=== PATIENT | male | born 1950 | race Caucasian/White ===

== ENCOUNTER 2019-01-31 07:49 | Day surgery (SDC) | payer MEDICARE, OTHER ==
[2019-01-31] MEDS ORDERED: LACTATED RINGERS 1,000 ML IV ONE (08:21)
[2019-01-31] MEDS ORDERED: MIDAZOLAM 2 MG/2 ML VIAL IVP ONE (08:50)
[2019-01-31] MEDS ORDERED: fentaNYL 250 MCG/5 ML VIAL IVP ONE (08:50)
[2019-01-31 09:43] VITALS: BP 131/83
== END 2019-01-31 07:50 | disposition home or self-care (01) ==
LOC: SDS 07:49
PROVIDERS: ATTEND Internal Medicine Gastroenterology
PROC: 0DBN8ZZ Excision of Sigmoid Colon, Via Natural or Artificial Opening Endoscopic (ICD-10-PCS; 2019-01-31)
PROC: 0W3P8ZZ Control Bleeding in Gastrointestinal Tract, Via Natural or Artificial Opening Endoscopic (ICD-10-PCS; 2019-01-31)
PROC: 0DBP8ZZ Excision of Rectum, Via Natural or Artificial Opening Endoscopic (ICD-10-PCS; principal; 2019-01-31 09:15)
DX: Z12.11 Encounter for screening for malignant neoplasm of colon (principal); K63.5 Polyp of colon; K62.89 Other specified diseases of anus and rectum; M06.9 Rheumatoid arthritis, unspecified; J30.2 Other seasonal allergic rhinitis; K90.41 Non-celiac gluten sensitivity; E73.9 Lactose intolerance, unspecified; I73.00 Raynaud's syndrome without gangrene; Z87.891 Personal history of nicotine dependence
CPT/HCPCS: 45380; 45382; J3010; J7120

== ENCOUNTER 2019-09-13 23:55 | Outpatient (CLI) | payer MEDICARE, OTHER | END 2019-09-13 23:56 | disposition EMS.NT | LOC: EMS 23:55 | PROVIDERS: ATTEND Surgery | DX: R10.9 Unspecified abdominal pain (principal) ==

== ENCOUNTER 2019-09-14 01:04 | Emergency (ER) | payer MEDICARE, OTHER ==
--- NOTE | 2019-09-14 01:20 | ED Physician Documentation ---
History of Present Illness - Stated complaint Stated Complaint: ABD PX/CONFUSION - Chief complaint Chief Complaint: Neuro - History obtained from History obtained from: Patient, Family (spouse) - History of Present Illness Timing: Today (this morning (09/13/19)) Pain level max: 5 Pain level now: 2 (mild abdominal cramping, intermittent) Improved by: no ameliorating factors Worsened by: no apparent exacerbating factors - Additonal information Additional information: patient says he had an exacerbation of symptoms he attributes to gluten intolerance. Patient says he had mild abdominal cramping, intermittently since yesterday morning. this evening, after dinner, he experienced "esophageal cramping", points to epigastrium as area of discomfort, with increased abdominal cramping. He says the "esophageal cramping" has resolved but the generalized abdominal cramping continued. He was lying in bed trying to fall asleep when he began to experience leg twitching bilaterally which his description suggests brief clonic jerks, non rhythmic and not coordinated. He says his arms both raised over his head and started waving around without his control. He felt he could not otherwise move and could not speak but denies being unconscious or asleep. He then "sat bolt upright" in bed, feeling very anxious, was pacing around room. then called 911. his symptoms have gradually improved and now are limited to mild abdominal cramping pain. Review of Systems Constitutional: denies: Fever, Chills, Myalgias, Sweats Cardiac: reports: Reviewed and negative Respiratory: reports: Reviewed and negative GI: reports: Abdominal Pain. denies: Abdominal Swelling, Nausea, Vomiting, Constipation, Diarrhea : denies: Dysuria, Frequency Neurologic: reports: Difficulty speaking. denies: Generalized weakness, Focal weakness, Numbness, Confused, Headache PD PAST MEDICAL HISTORY - Past Medical History Cardiovascular: None Respiratory: None Endocrine/Autoimmune: None GI: Other : Benign prostate hypertrophy HEENT: None Psych: None Musculoskeletal: Rheumatoid arthritis Derm: None - Past Surgical History General: Colonoscopy, EGD Ortho: Other HEENT: Tonsil/Adenoidectomy - Present Medications Home Medications: Ambulatory Orders Medication Instructions Recorded Confirmed Folic Acid 1,000 mg PO DAILY 01/30/19 09/14/19 metHOTREXate sodium [Trexall] 17.5 mg PO OAW 01/30/19 09/14/19 - Allergies Allergies/Adverse Reactions: Allergies Allergy/AdvReac Type Severity Reaction Status Date / Time gluten Allergy Hallucinati Verified 09/14/19 01:22 ons PD ED PE NORMAL - Vitals Vital signs reviewed: Yes - General General: Alert and oriented X 3, No acute distress, Well developed/nourished - HEENT HEENT: PERRL, EOMI, Moist mucous membranes - Neck Neck: Supple, no meningeal sign, Other (no crepitus) - Cardiac Cardiac: RRR, No murmur - Respiratory Respiratory: No respiratory distress, Clear bilaterally - Abdomen Abdomen: Normal bowel sounds, Soft, Non tender, Non distended - Derm Derm: Normal color, Warm and dry - Neuro Neuro: Alert and oriented X 3, auditor/quality 2-12 intact, No motor deficit, No sensory deficit, Normal speech Eye Opening: Spontaneous Motor: Obeys Commands Verbal: Oriented GCS Score: 15 Results - Vitals Vitals: Vital Signs - 24 hr 09/14/19 09/14/19 09/14/19 01:09 02:02 02:18 Temperature 36.6 C Heart Rate 58 L 59 L 57 L Respiratory 16 16 16 Rate Blood Pressure 131/76 H 123/73 112/83 H O2 Saturation 100 100 100 09/14/19 09/14/19 03:05 04:44 Temperature 36.8 C Heart Rate 59 L 69 Respiratory 16 16 Rate Blood Pressure 105/67 104/67 O2 Saturation 100 98 Oxygen O2 Source Room air - Labs Labs: Laboratory Tests 09/14/19 09/14/19 01:58 01:58 WBC 8.3 RBC 4.51 L Hgb 12.8 L Hct 40.2 L MCV 89.1 MCH 28.4 MCHC 31.8 L RDW 15.5 H Plt Count 178 MPV 10.6 Neut # (Auto) 5.1 Lymph # (Auto) 1.8 [place] # (Auto) 0.9 Eos # (Auto) 0.4 Baso # (Auto) 0.1 Absolute Nucleated RBC 0.00 Nucleated RBC % 0.0 Sodium 140 Potassium 3.7 Chloride 110 Carbon Dioxide 25 Anion Gap 5.0 L BUN 17 Creatinine 1.0 Estimated GFR (MDRD) 74 L Glucose 102 H Calcium 8.7 Total Bilirubin 0.6 AST 21 ALT 23 Alkaline Phosphatase 49 Total Protein 6.7 Albumin 3.9 Globulin 2.8 Albumin/Globulin Ratio 1.4 Lipase 48 - Rads (name of study) CT head Radiology: Prelim report reviewed, See rad report chest xray Radiology: Prelim report reviewed, See rad report PD MEDICAL DECISION MAKING - ED course Complexity details: reviewed results, re-evaluated patient, considered differential, d/w patient, d/w family ED course: patient was in NAD during ED stay including multiple reevaluations. He declined medications (amongst medications that were offered were pain medications and antispasmodics for GI (such as bentyl, immodium, lomotil)). He says his remaining symptom of abdominal cramping is c/w previous episodes he associates with gluten intolerance. His abdomen is nontender initially and on reexam. His CTH has an unusual finding of "bubbles of air of uncertain etiology in the soft tissues inferior to the skull base" (per radiology read). He has no crepitus on exam of head, neck, chest. He denies chest pain initially and on reexamination. A chest xray was performed and it is unremarkable for acute pathology. Further emergent testing not indicated at this time, but I discussed this finding with him along with the lack of a source for this finding, and instructed him to f/u with PMD but return immediately if worse in any way. Departure - Departure Disposition: 01 Home, Self Care Clinical Impression: Abdominal pain Qualifiers: Abdominal location: generalized Qualified Code(s): R10.84 - Generalized abdominal pain Condition: Good Instructions: ED Abdominal Pain Unkn Cause Male Follow-Up: Carina Andersen DO [Primary Care Provider] - Within 1 week Discharge Date/Time: 09/14/19 05:10
[2019-09-14] MEDS ORDERED: SODIUM CHLORIDE 0.9% 1,000 ML IV STA (01:51)
[2019-09-14 02:06] LABS: BASOPHILS # (AUTO) 0.1 10^3/uL (0.0-0.1); BASOPHILS % (AUTO) 0.6 %; EOSINOPHILS # (AUTO) 0.4 10^3/uL (0.0-0.7); EOSINOPHILS % (AUTO) 5.2 %; HGB - HEMOGLOBIN 12.8 g/dL (14.0-18.0); LYMPHOCYTES # (AUTO) 1.8 10^3/uL (1.5-3.5); LYMPHOCYTES % (AUTO) 21.9 %; MEAN CORPUSCULAR HEMOGLOBIN 28.4 pg (27.0-31.0); MEAN CORPUSCULAR HGB CONC 31.8 g/dL (32.0-36.0); MEAN CORPUSCULAR VOLUME 89.1 fL (80.0-94.0); MEAN PLATELET VOLUME 10.6 fL (7.4-11.4); MONOCYTES # (AUTO) 0.9 10^3/uL (0.0-1.0); MONOCYTES % (AUTO) 11.2 %; NEUTROPHILS # (AUTO) 5.1 10^3/uL (1.5-6.6); NEUTROPHILS % (AUTO) 60.9 %; PLT - PLATELET COUNT 178 10^3/uL (130-450); RED BLOOD COUNT 4.51 10^6/uL (4.70-6.10); RED CELL DISTRIBUTION WIDTH 15.5 % (12.0-15.0); WHITE BLOOD COUNT 8.3 x10^3/uL (4.8-10.8)
[2019-09-14 02:19] LABS: ALBUMIN 3.9 g/dL (3.2-5.5); ALBUMIN/GLOBULIN RATIO 1.4 (1.0-2.2); BILIRUBIN,TOTAL 0.6 mg/dL (0.2-1.0); CALCIUM 8.7 mg/dL (8.5-10.3); TOTAL PROTEIN 6.7 g/dL (6.7-8.2)
--- NOTE | 2019-09-14 02:50 | CT Report ---
Reason: AMS Procedure Date: 09/14/2019 Accession Number: [id number] / [id number] Procedure: CT - HEAD WO CPT Code: Final Report FULL RESULT: EXAM: CT HEAD EXAM DATE: 09/14/2019 02:21 AM. CLINICAL HISTORY: Decreased mental status. COMPARISON: None. TECHNIQUE: Multiaxial CT images were obtained from the foramen magnum to the vertex. Reformats: Sagittal and coronal. IV contrast: None. In accordance with CT protocol optimization, one or more of the following dose reduction techniques were utilized for this exam: automated exposure control, adjustment of mA and/or KV based on patient size, or use of iterative reconstructive technique. FINDINGS: Parenchyma: No intraparenchymal hemorrhage. No evidence of mass, midline shift, or CT findings of infarction. Lott-white differentiation is distinct. Extraaxial Spaces: Normal for age. No subdural or epidural collections identified. Ventricles: Normal in size and position. Sinuses and Orbits: Imaged paranasal sinuses, orbits, and mastoids show no significant abnormality. Bones: No evidence of fracture or calvarial defect. Other: Bubbles of air in the soft tissues inferior to the skull base. IMPRESSION: 1. No acute intracranial abnormality. 2. Bubbles of air of uncertain etiology in the soft tissues inferior to the skull base. [facility]
--- NOTE | 2019-09-14 04:34 | XRAY Report ---
Reason: abd. pain, chest discomfort Procedure Date: 09/14/2019 Accession Number: [id number] / [id number] Procedure: XR - Chest 2 View X-Ray CPT Code: 28644 Final Report FULL RESULT: EXAM: CHEST RADIOGRAPHY EXAM DATE: 09/14/2019 04:09 AM. CLINICAL HISTORY: Chest discomfort COMPARISON: None. TECHNIQUE: 2 views. FINDINGS: Lungs/Pleura: No focal opacities evident. Possible right midlung calcified granuloma. No pleural effusion. No pneumothorax. Normal volumes. Mediastinum: Heart and mediastinal contours are unremarkable. Other: None. IMPRESSION: Negative 2-view chest radiography. [facility]
[2019-09-14 04:46] VITALS: BP 104/67
== END 2019-09-14 05:10 | disposition home or self-care (01) ==
LOC: ED 01:04
DX: R10.84 Generalized abdominal pain (principal); R41.0 Disorientation, unspecified
CPT/HCPCS: 36415; 70450; 71046; 80053; 83690; 85025; 96360; 99284

== ENCOUNTER 2021-05-24 08:00 | Outpatient (CLI) | payer MEDICARE, OTHER | END 2021-05-24 23:59 | disposition home or self-care (01) | LOC: LAB.N 08:00 | PROVIDERS: ATTEND Physician Assistant Medical | DX: R30.0 Dysuria (principal) | CPT/HCPCS: 87086 ==